=== PATIENT | male | born 1975 | race African-American/Black ===

== ENCOUNTER 2024-08-11 00:46 | Emergency (ER) | payer SELFPAY ==
[2024-08-11 00:49] VITALS: BP 168/101; PULSE 88; RESP 16; TEMP 36.4; O2SAT 100; BMI 35.0
--- NOTE | 2024-08-11 01:08 | ED_ITS ---
HPI - General Adult General Chief complaint: ETOH/Substance Use Stated complaint: ETOH under PC w/ CPD, left foot pain Time Seen by Provider: 08/11/24 01:07 Source: patient and EMS Mode of arrival: EMS Limitations: other History of Present Illness ED Provider: Dr. Karin Cabello HPI narrative: Patient comes to the emergency room complaining of alcohol intoxication and looking for a place to sleep. Patient admits that he is homeless. Patient denies any falls or any injuries. Patient denies SI or HI Related Data Previous Rx's ?Medication ?Instructions ?Recorded losartan 50 mg-hydrochlorothiazide 1 tab PO DAILY #90 tabs 08/11/24 12.5 mg tablet Allergies Allergy/AdvReac Type Severity Reaction Status Date / Time Unable to Assess Allergy Verified 08/11/24 00:56 Review of Systems Review of Systems: Constitutional : No Weight loss, No Fever, No Chills, No Night Sweats, No Fatigue, No Malaise ENT/Mouth : No Hearing loss, No Ear Pain, No Nasal Congestion, No Sinus Pain, No Hoarseness, No sore throat, No Rhinorrhea, No Swallowing Difficulty Eyes: No Eye Pain, No Swelling, No Redness, No Foreign Body, No Discharge, No Vision Changes Cardiovascular : No Chest Pain, No SOB, No Dyspnea on Exertion, No Orthopnea, No Edema, No Palpitations Respiratory : No Cough, No Sputum, No Wheezing, No Smoke Exposure, No Dyspnea Gastrointestinal : No Nausea, No Vomiting, No Diarrhea, No Constipation, No a bdominal Pain, No Hematochezia, No Melena Genitourinary : no irregular bleeding, No Dysuria, No Urinary Frequency, No Hematuria, No Urinary Incontinence, No Urgency, No Flank Pain, No Urinary Flow Changes, No Hesitancy Musculoskeletal : No joint pain, No Myalgias, No Joint Swelling Skin : No Skin Lesions, No rash Neuro : No Weakness, No Numbness, No Paresthesias, No Loss of Consciousness, No Dizziness, No Headache Psych : No Anxiety/Panic, No Depression, No SI/HI/AH/VH, admits to alcohol abuse and being homeless Heme/Lymph: No Bruising, No Bleeding,No Lymphadenopathy Endocrine : No Polyuria, No Polydipsia, No Temperature Intolerance PMF Past Medical History Medical History Homeless Alcohol abuse Social History Social History Advance Directives: No Advance Directives Information Provided: Yes Do you have a plan to hurt others: No Plan Physical Exam ED Vital Signs: Vital Signs - 24 hr 08/11/24 00:49 08/11/24 04:07 08/11/24 04:59 Temperature 97.6 F 98.4 F 98 F Pulse Rate 88 108 H Respiratory Rate 16 18 18 Blood Pressure 168/101 H 196/127 H Pulse Oximetry 100 94 Oxygen Delivery Method Room Air Room Air BMI result Body Mass Index 35.0 Medications Administered Discontinued Medications Generic Name Dose Route Start Last Admin Trade Name Freq PRN Reason Stop Dose Admin Losartan Potassium 50 mg 08/11/24 05:03 08/11/24 05:15 Losartan Potassium 50 Mg Tablet PO 08/11/24 05:04 50 mg ONCE ONE Administration Protocol Medical Decision Making Medical Decision Making [facility] Narrative: At this time, there is no medical reason why the patient is here in the emergency room other than trying to get some sleep. Patient is under physician observation Plan: Discharge in the morning when patient is awake alert, offer detox information over through addiction medicine [address] six: Patient is awake, alert and oriented x3. Clinically sober. It was noted that patient's blood pressure is elevated, currently 196/127 with a heart rate of 108. Patient states that in the past he has been told that he has hypertension but has not taking any medications for over a year. Patient was given p.o. losartan here in the emergency room. Patient's blood pressure improved to the 150s systolic. Patient asymptomatic Differential Diagnosis Differential Diagnoses: The differential diagnosis associated with the presentation includes Admission/Observation Consideration of admission/observation: Escalation of care including admission/observation considered (Given patient's elevated blood pressure, admission/observation was considered) Critical Care Time Critical Care Time Critical Care Time: Yes Total Critical Care Time: 60 Attestation: I have personally provided critical care time. Time includes review of lab data, radiology results, discussion with consultants, and monitoring for potential decompensation. Intervention performed as documented. Discharge Plan Discharge Clinical Impression: Alcohol intoxication, Hypertension Patient Disposition: Home, Self-Care Instructions: Abuse of Alcohol (ED) Additional Instructions: Alcohol use disorder You were seen in the Emergency Department today for treatment of alcohol use disorder.? You may have been given medications to help with your withdrawal symptoms.? Please do not drink alcohol with them. This is very dangerous and can cause respiratory depression or other adverse reactions depending on the medication. If you would like to cut down or stop your alcohol use please consider calling our outpatient Addiction Treatment office:? [facility] (M-F [id number]) [address] [place] [phone] ? You have also been given a list of treatment providers in the area that can assist as well.? If you experience seizures, vomiting blood, black stools, falls, severe headache, chest pain, fevers, trouble breathing, hallucinations or any other concerns you need to call 911 or seek immediate care. Please stay hydrated. Prescriptions: New losartan-hydrochlorothiazide 50-12.5 mg tablet 1 tab PO DAILY Qty: 90 0RF Print Language: [place]
[2024-08-11 04:07] VITALS: RESP 18; TEMP 36.9
[2024-08-11 04:59] VITALS: BP 196/127; PULSE 108; RESP 18; TEMP 36.6; O2SAT 94
--- NOTE | 2024-08-11 05:01 | PC.NURSE ---
Pt woke up and asked to use the bathroom. Pt ambulates independently with a steady gait. Pt back to bed and VS measured, VS noted to be elevated as noted X 2. MD aware. Pt is calm and cooperative, appropriate with staff.
[2024-08-11] MEDS: Losartan Potassium 50 MG TABLET PO (05:15)
[2024-08-11 06:41] VITALS: BP 151/72; PULSE 102; RESP 16; TEMP 37.2; O2SAT 96
== END 2024-08-11 06:44 | disposition home or self-care (01) ==
PROVIDERS: Emergency Provider Emergency Medicine
DX: F10.120 Alcohol abuse with intoxication, uncomplicated (principal); Y90.9 Presence of alcohol in blood, level not specified; I10 Essential (primary) hypertension; Z59.00 Homelessness unspecified
CPT/HCPCS: 99283